=== PATIENT | male | born 1995 | race Caucasian/White ===

== ENCOUNTER 2018-12-03 14:35 | Emergency (ER) | payer OTHER ==
[~2018-12-03] VITALS: Ht 175.3 cm; Wt 113.6 kg
[2018-12-03 14:36] VITALS: BP 141/73
[2018-12-03] MEDS ORDERED: OLAN15TA PO (14:46)
[2018-12-03] MEDS ORDERED: HALO20TA PO (14:46)
[2018-12-03] MEDS ORDERED: OLAN10TA2 PO (15:38)
[2018-12-03] MEDS ORDERED: HALO5TA PO (15:38)
== END 2018-12-03 15:30 | disposition home or self-care (01) ==
LOC: M ED 14:35
DX: Z76.0 Encounter for issue of repeat prescription (principal); F84.0 Autistic disorder; F20.9 Schizophrenia, unspecified; Z79.899 Other long term (current) drug therapy; Z88.1 Allergy status to other antibiotic agents